=== PATIENT | female | born 1975 | race Caucasian/White ===

== ENCOUNTER → 2022-05-11 | Outpatient (CLI) | payer OTHER, SELFPAY ==
[2022-05-11 08:28] LABS: Absolute Lymphocyte Count 2.29 X10^3/uL (0.83-4.51); Absolute Neutrophil Count 4.9 X10^3/uL (2.0-7.7); Basophil# 0.05 X10^3/uL; Basophil% 0.6 % (0-1); Eosinophil# 0.33 X10^3/uL; Hematocrit 37.2 % (37-47); Lymphocyte # 2.29 X10^3/ul (0.83-4.51); Mean Corp Hgb Conc 32.3 g/dL (32-36); Mean Corpuscular Hgb 30.2 pg (27.0-32.0); Mean Corpuscular Volume 93.7 fL (81-99); Mean Platelet Vol. 10.4 fl (6.2-12.0); Monocyte% 7.3 % (0-10); NRBC Flagged by Analyzer 0 % (0-5); Neutrophil # 4.86 X10^3/uL (2.7-7.7); Neutrophil % 59.6 % (47-70); Platelet Count 440 K/mm3 (150-450); RBC Distribution Width SD 44.7 fl (35.1-43.9); Red Blood Count 3.97 M/mm3 (4.2-5.4); White Blood Count 8.2 K/mm3 (4.4-11.0)
[2022-05-11 08:54] LABS: AST(SGOT) 27 U/L (15-37); Alanine Aminotransfer ALT/SGPT 50 U/L (13-56); Albumin, Serum 4.1 g/dL (3.2-5.0); Alkaline Phosphatase 94 U/L (45-117); Anion Gap 5 (5-15); BUN 13 mg/dL (7-18); BUN/Creat Ratio 19.7 RATIO (10-20); Calcium,Total 9.7 mg/dL (8.5-10.1); Chloride 108 mmol/L (98-107); Creatinine, Serum 0.66 mg/dL (0.55-1.02); EST Glomerular Filtration Rate 102 mL/min (>60); Est Glom Filt Rate - Afr Amer 123 mL/min (>60); Glucose 108 mg/dL (74-106); Potassium 3.6 mmol/L (3.5-5.1); Protein, Total 8.1 g/dL (6.4-8.2); Sodium Level 138 mmol/L (136-145)
== END | disposition home or self-care (01) ==
PROVIDERS: Referring Provider Physician Assistant Medical; Visit Provider Physician Assistant Medical
DX: R19.7 Diarrhea, unspecified (principal); K58.9 Irritable bowel syndrome, unspecified
CPT/HCPCS: 36415; 80053; 82274; 83630; 85025; 87493; 87506

== ENCOUNTER 2022-05-24 07:39 | Day surgery (SDC) | payer OTHER, SELFPAY ==
[2022-05-24] VITALS (8 sets, daily range): BP systolic 107–124; BP diastolic 76–85; PULSE 82–100; RESP 16; TEMP 36.2–36.8; O2SAT 99–100; BMI 26.5
--- NOTE | 2022-05-24 | COLBX_PTH ---
PATIENT: ALTON MONTGOMERY LOC: EN U#:[id number] AGE/SX: 46/F ROOM: RE05/24/[address]: Dr. Dell Vidal MD : 1975 BED: DIS: 05/24/2022 SPEC #: [id number] RECD: 05/24/22 12:20 STATUS: DEVONTE JOSE A #: [id number] ALISIA: 05/24/22 00:[address]: Dell Vidal DEPT: SURGICAL PATHOLOGY RECD BY: Jason Garcia ENTERED: 05/24/22 12:21 SP TYPE: COLON BX OTHR DR: Dr. Suzette Perez MD Tissues: A - Cecum, NOS B - Ascending colon C - Transverse colon D - Descending colon E - Sigmoid colon biopsy F - Rectum, NOS Procedures: Surgery Specimen Level IV HEADER OPERATION: Colonoscopy (MAC), biopsy PRE-OP DIAGNOSIS: Rectal hemorrhage, diarrhea TISSUE SUBMITTED: A - Cecum biopsy, B - Ascending biopsy, C - Transverse biopsy, D - Descending biopsy, E - Sigmoid biopsy, F - Rectal biopsy MICROSCOPIC DIAGNOSIS A. Cecum, biopsy: Fragments of colonic mucosa, no pathologic diagnosis. B. Ascending colon, biopsy: Fragments of colonic mucosa, no pathologic diagnosis. C. Transverse colon, biopsy: A fragment of colonic mucosa, no pathologic diagnosis. D. Descending colon, biopsy: Fragments of colonic mucosa, no pathologic diagnosis. E. Sigmoid colon, biopsy: Fragments of colonic mucosa, no pathologic diagnosis. F. Rectal biopsy: Fragments of colonic mucosa, no pathologic diagnosis. SJ:roni 05/25/2022 MICROSCOPIC DESCRIPTION Slides are reviewed. GROSS DESCRIPTION A - Received in fixative is one container labeled with the patient's name and designated cecum biopsy. The specimen consists of multiple irregular fragments of light spivey soft tissue that in aggregate measure 1.0 x 0.3 x 0.1 cm. The specimen is totally submitted in one cassette. B - Received in fixative is one container labeled with the patient's name and designated ascending biopsy. The specimen consists of multiple irregular fragments of light spivey soft tissue that in aggregate measure 0.6 x 0.6 x 0.1 cm. The specimen is totally submitted in one cassette. C - Received in fixative is one container labeled with the patient's name and designated transverse biopsy. The specimen consists of one irregular fragment of light spivey soft tissue that measures 0.5 x 0.4 x 0.1 cm. The specimen is totally submitted in one cassette. D - Received in fixative is one container labeled with the patient's name and designated descending biopsy. The specimen consists of multiple irregular fragments of light spivey soft tissue that in aggregate measure 0.6 x 0.5 x 0.1 cm. The specimen is totally submitted in one cassette. E - Received in fixative is one container labeled with the patient's name and designated sigmoid biopsy. The specimen consists of two irregular fragments of light spivey soft tissue that in aggregate measure 0.6 x 0.3 x 0.1 cm. The specimen is totally submitted in one cassette. F - Received in fixative is one container labeled with the patient's name and designated rectal biopsy. The specimen consists of multiple irregular fragments of light spivey soft tissue that in aggregate measure 0.6 x 0.4 x 0.1 cm. The specimen is totally submitted in one cassette. / SJ:rg 05/24/2022 TC:4 CPT: 20054 x6
[2022-05-24] MEDS: Lactated Ringers 1,000 ML 15 ML IV (08:02)
[2022-05-24 09:20] LABS: Bedside Glucose 117 mg/dL (74-106)
--- NOTE | 2022-05-24 09:43 | PCM.HP.BLA ---
History and Physical Date of Admission: 05/24/22 Date of Service:? 05/17/22 MR#: [id number] Acct: [id number] Name:ALTON BURDEN Rep #: [id number] : 1975 ? ? Provider: Dr. Dell Vidal MD Age/Sex:? 46/F ? ? Location: [facility] Status: Signed Intake Vital Signs ? 05/17/2308:07 Height 5 ft 7 in Weight: 179 lb 6 oz BMI 28.0 BP 151/70 H Blood Pressure Location Rt brachial Position Sitting Respiration 18 Pulse 87 Pulse Source Monitor Temp 97.2 F L Temp Source Temporal Pulse Oximetry (%) 100 Oxygen Delivery Method room air Intake Visit Reasons:?Rectal bleeding Chief Complaint: Positive occult blood/diarrhea [employer] Required: No Is patient in pain?: No Allergies Penicillins Adverse Reaction (Mild, Verified 05/17/22 09:08) Hives Medications duloxetine 30 mg capsule,delayed release 30 mg PO DAILY 05/11/22 [History Confirmed 05/17/22] gemfibrozil 600 mg tablet (Lopid) 600 mg PO DAILY 05/11/22 [History Confirmed 05/17/22] gabapentin 100 mg capsule 600 mg PO QHS 05/17/22 [History Confirmed 05/17/22] metformin 500 mg tablet 1,000 mg PO DAILY 05/17/22 [History Confirmed 05/17/22] PFSH Medical History?(Updated 05/17/22 @ 19:[address] Dell Vidal MD) Abdominal pain Anxiety Depression Diabetes Diarrhea Nausea Positive occult stool blood test Surgical History? History of hysterectomy Family History?(Updated 05/17/22 @ 09:06 by Odilia Edwards) Father Diabetes Heart disease Hypertension Social History?(Updated 05/17/22 @ 09:07 by Odilia Edwards) Smoking Status:? Current every day smoker Electronic Cigarette Use:? with nicotine alcohol intake:? never substance use type:? does not use HPI HPI HPI: Patient is a 46-year-old female who presents for need to schedule diagnostic colonoscopy secondary to recent changes in stool?no has been primarily diarrhea since March.? They are referred for surgical consultation from urgent care.? Patient has not had prior colonoscopy.? They describe their bowel habits as loose and alternating between straight liquid and very soft.? They state that they have been this way since experiencing a sinus issue at the end of March.? They deny any usage of antibiotics to resolve this issue.? They have approximately 6 bowel movements per day and spend roughly minimal time on the toilet without straining.? In fact, of late patient reports that the frequency is even higher and that yesterday she experienced 9 bowel movements.? She is also distressed because she has had a number of accidents?both in response to coughing as well as awakening her in the middle of the night.? They have not noticed recent bleeding or dark stools, generally, but have noted some occasional bright red blood when wiping.? Because of this, she remarks that she has a suspicion for some small hemorrhoids due to the irritation from her frequent bowel movements.? They do not regularly take fiber supplements.? They do not consume significant fiber in their regular diet. Patient has no family history of colon cancer, inflammatory bowel disease, or diverticulitis.? ? The patient's weight is not stable and patient reports a recent weight loss of approximately 6 pounds. Patient has no prior experience of this type of diarrhea.? She denies any associated abdominal pains.? She has no history of food intolerances. The patient is not prescribed anticoagulants/blood thinners. Relevant prior abdominal surgical history includes: Hysterectomy Patient does have a history of vaping. ROS General General: Yes fatigue; No weight change, appetite, colon cancer, breast cancer or weakness HEENT HEENT: No difficulty swallowing, eye injury, eye surgery, swollen glands or hoarseness Endo Endocrine: Yes diabetes mellitus; No thyroid disease, thyroid cancer, Hair loss, heat intolerance or cold intolerance Skin Skin: No rash or changing moles Breast Breast: No left breast lump, right breast lump, nipple discharge, breast pain, abnormal mammogram, abnormal US or breast enlargement Musc Musculoskeletal: No back problems, arthritis, rheumatoid arthritis, gout or joint pain Cardio Cardiovascular: No murmur, pacemaker, heart disease, atrial fibrillation, high blood pressure, heart attack, heart stent, palpitations, shortness of breat with exertion or chest pain Psych Psychiatric: Yes depression and anxiety; No hearing voices Resp Respiratory: No shortness of breath, No sleep apnea, No cough, No COPD, No asthma, No emphysema and No wheezing Gastro Gastrointestinal: Yes abdominal pain, Yes nausea or vomiting, Yes diarrhea, No constipation, Yes blood in stool, No acid reflux, Yes hemorrhoids, No ulcers, No gallbladder problem and No black,tarry stools Kristian Hematologic: No blood thinners, No blood disorders, No bleeding, No anemia and No blood clots Neuro Neurologic: No system reviewed and no additional complaints, except as documented, No as per HPI, No abnormal gait, No abnormal hearing, No abnormal movements, No abnormal speech, No behavioral changes, No burning sensations, No confusion, No convulsions, No disequilibrium, No dizziness, No localized weakness, No frequent falls, No headache(s), No lack of coordination, No loss of vision, No memory loss, Yes numbness, No other visual disturbances, No radicular pain, No restless legs, No sensory deficit, No syncope, Yes tingling, No tremor(s), No weakness and No other Exam Const General: cooperative and no acute distress Orientation: alert, awake and oriented x3 Resp Auscultation: no rales, no rhonchi and no wheezes Cardio Rate: regular rate Rhythm: regular rhythm GI Other: Nondistended, soft, no visible herniation.? Very mild discomfort in left lower quadrant, otherwise nontender to palpation x4 quadrants Assessment and Plan Assessment and Plan (1) Rectal hemorrhage: ?Plan: Patient with some reports of bright red blood per rectum with wiping and positive Hemoccult study.? This is suggestive for hemorrhoids.? Significantly, patient's recent hemoglobin was normal at 12 g/dL.? Have discussed with patient that we could consider endoscopic banding with pending colonoscopy and she readily accepts. (2) Diarrhea: ?Status:?Chronic ?Comment: Patient with nearly 2 months of diarrhea experiencing increasing frequency of bowel movements.? Work-up initiated per urgent care included enteric pathogen panel and C. difficile?both of which were negative.? Patient has no history of food intolerances and, significantly, denies any associated abdominal pain with these complaints.? I am suspicious for a malabsorptive etiology.? Given her history of vaping, I believe we need to rule out a diagnosis of microscopic colitis.? Recommend proceeding for a diagnostic colonoscopy with random colon biopsies.? Patient is receptive of this recommendation.? In the interim, I have encouraged patient to begin supplementing her fiber with Metamucil and shared with her that it is okay to continue Imodium twice daily as needed for her symptoms. ?Plan: ? Fiber supplementation ? Okay to use Imodium as needed ? Plan for diagnostic colonoscopy on first mutually agreeable date.? Patient okay to complete 1 day prep.? Patient informed that she would require a cab driver for this procedure.? At the time of this procedure, we will plan for random colonic biopsies and will consent patient for possible endoscopic banding if hemorrhoids are identified I have examined the patient and the H&P has been reviewed. There are no clinical changes since date of exam. Patient confirms that she completed her prep successfully and her output is now clear. Proceed to the endoscopy suite for diagnostic colonoscopy as discussed above. We will plan for random colonic biopsies as well as any hemorrhoid banding if indicated.
--- NOTE | 2022-05-24 10:39 | OP.COLON_ITS ---
Patient Name: Ernestine Sood Procedure Date: 05/24/2022 9:35 AM Date of : 1975 Age: 46 Procedure: Colonoscopy Indications: Clinically significant diarrhea of unexplained origin, Anal bleeding Providers: Dell Vidal MD Referring MD: Dell Vidal MD Medicines: See the Anesthesia note for documentation of the administered medications Patient Profile: Last Colonoscopy: none. The patient's first colonoscopy is today. Complications: No immediate complications. Estimated blood loss: Minimal. Procedure: Pre-Anesthesia Assessment: - The heart rate, respiratory rate, oxygen saturations, blood pressure, adequacy of pulmonary ventilation, and response to care were monitored throughout the procedure. After I obtained informed consent, the scope was passed under direct vision. Throughout the procedure, the patient's blood pressure, pulse, and oxygen saturations were monitored continuously. The pediatric colonoscope was introduced through the anus and advanced to the cecum, identified by transillumination. The colonoscopy was somewhat difficult due to significant looping and the patient's medical instability in reaction to sedation medication. Successful completion of the procedure was aided by applying abdominal pressure. The patient tolerated the procedure fairly well. The quality of the bowel preparation was good. Scope In: 9:50:11 AM Scope Withdrawal Time 0 hours 19 minutes 18 seconds Scope Out: 10:29:47 AM Total Procedure Duration Time 0 hours 39 minutes 36 seconds Findings: The perianal and digital rectal examinations were normal. A few small-mouthed diverticula were found in the ascending colon. No biopsies or other specimens were collected for this exam. The exam was otherwise without abnormality on direct and retroflexion views. Internal hemorrhoids were found during retroflexion. The hemorrhoids were Grade I (internal hemorrhoids that do not prolapse). No biopsies or other specimens were collected for this exam. Normal mucosa was found in the rectum, in the sigmoid colon, in the descending colon, in the transverse colon, in the ascending colon and in the cecum. Biopsies for histology were taken with a cold forceps from the cecum, ascending colon, transverse colon, descending colon, sigmoid colon and rectum for evaluation of microscopic colitis. Estimated blood loss was minimal. Impression: - Diverticulosis in the ascending colon. No specimens collected. - The examination was otherwise normal on direct and retroflexion views. - Internal hemorrhoids. No specimens collected. - Normal mucosa in the rectum, in the sigmoid colon, in the descending colon, in the transverse colon, in the ascending colon and in the cecum. Biopsied. Recommendation: - Discharge patient to home (via wheelchair). - Resume previous diet today. - Continue present medications. - Await pathology results. - Repeat colonoscopy date to be determined after pending pathology results are reviewed for surveillance based on pathology results. - Telephone my office for pathology results in 1 week. Procedure Code(s): --- Professional --- 34201, Colonoscopy, flexible; with biopsy, single or multiple Diagnosis Code(s): --- Professional --- K64.0, First degree hemorrhoids R19.7, Diarrhea, unspecified K62.5, Hemorrhage of anus and rectum K57.30, Diverticulosis of large intestine without perforation or abscess without bleeding CPT copyright 2017 [employer]. All rights reserved. The codes documented in this report are preliminary and upon hanger off review may be revised to meet current compliance requirements. Dell Vidal MD 05/24/2022 10:39:12 AM This report has been signed electronically. Number of Addenda: 0 Note Initiated On: 05/24/2022 9:35 AM
--- NOTE | 2022-05-24 10:40 | OP.CCLET_ITS ---
05/24/2022 Suzette Perez Md Re : Colonoscopy procedure for Ernestine Sood Dear Ana This procedure was performed on May. My impressions and recommendations are as follows: Impressions : - Diverticulosis in the ascending colon. No specimens collected. - The examination was otherwise normal on direct and retroflexion views. - Internal hemorrhoids. No specimens collected. - Normal mucosa in the rectum, in the sigmoid colon, in the descending colon, in the transverse colon, in the ascending colon and in the cecum. Biopsied. Recommendations : - Discharge patient to home (via wheelchair). - Resume previous diet today. - Continue present medications. - Await pathology results. - Repeat colonoscopy date to be determined after pending pathology results are reviewed for surveillance based on pathology results. - Telephone my office for pathology results in 1 week. My findings are described in the full procedure note, which is enclosed. If I can be of further assistance, please feel free to contact me at Doctor phone number(s): , Work: . Sincerely, Dell Vidal MD 05/24/2022 10:39:12 AM This report has been signed electronically.
== END 2022-05-24 12:07 | disposition home or self-care (01) ==
LOC: EN 07:40 → AC 07:41
PROVIDERS: PCP Internal Medicine; Referring Provider Surgery; Visit Provider Surgery
PROC: 0DJD8ZZ Inspection of Lower Intestinal Tract, Via Natural or Artificial Opening Endoscopic (ICD-10-PCS; CPT 45378; principal; 2022-05-24 08:55)
DX: K57.30 Diverticulosis of large intestine without perforation or abscess without bleeding (principal); E11.9 Type 2 diabetes mellitus without complications; Z79.4 Long term (current) use of insulin; K62.5 Hemorrhage of anus and rectum; K64.0 First degree hemorrhoids; F17.200 Nicotine dependence, unspecified, uncomplicated; E78.00 Pure hypercholesterolemia, unspecified
CPT/HCPCS: 45380; 82962; 88305; J7120; J2405

== ENCOUNTER 2022-06-29 17:16 | Observation (INO) | payer OTHER, SELFPAY ==
[2022-06-29 17:18] VITALS: BP 113/72; PULSE 96; RESP 18; TEMP 37.3; O2SAT 99; BMI 29.2
--- NOTE | 2022-06-29 17:46 | EX.ED.DYSGE1 ---
HPI <DIGNA Montesinos - Last Filed: 06/29/22 21:32> History of Present Illness Chief Complaint: Lower Extremity Injury Narrative Narrative: Patient presenting with pain to her right hip that radiates to her right groin. This evening, she was standing in her kitchen when her dog ran inside and tripped her, and she fell on her right hip. She denies any loss of consciousness or hitting her head. She is not on any blood thinners. She was not able to stand or get up and had to call EMS for help. She denies any other injury. PFS <DIGNA Montesinos - Last Filed: 06/29/22 21:32> [facility] Medical History (Updated 06/29/22 @ 22:[address] Rachele Holloway MD) Acute eczema Anxiety and depression Chronic diarrhea Diabetes mellitus, type 2 GERD (gastroesophageal reflux disease) High cholesterol Migraine headache Neuropathy Nicotine vapor product user Post-menopausal Restless legs Wears glasses Home Medications gemfibrozil 600 mg tablet (Lopid) 600 mg PO DAILY 05/11/22 [History Last Taken Unknown] duloxetine 30 mg capsule,delayed release 60 mg PO QHS #90 caps 05/30/22 [Rx Last Taken Unknown] gabapentin 300 mg capsule 600 mg PO QHS 05/30/22 [History Last Taken Unknown] blood sugar diagnostic (Accu-Chek Guide test strips) #100 ea 06/13/22 [Rx Last Taken Unknown] blood-glucose meter #1 ea 06/13/22 [Rx Last Taken Unknown] lancets (Accu-Chek Softclix Lancets) #100 ea 06/13/22 [Rx Last Taken Unknown] Allergy/AdvReac Type Severity Reaction Status Date / Time Penicillins AdvReac Mild Hives Verified 06/29/22 17:17 Family History Father Diabetes Heart disease Hypertension Cancer penile, lung Myocardial infarction Peripheral vascular disease Mother Cancer esophageal with mets Osteoporosis Grandmother Parkinsons disease Surgical History History of bunionectomy History of colonoscopy History of hysterectomy Social History (Updated 06/29/22 @ 22:[address] Rachele Holloway MD) current occupational status: employed current occupation: [employer] Smoking Status: Current every day smoker tobacco type: e-cigarettes Electronic Cigarette Use: with nicotine alcohol intake: never substance use type: does not use what type of physical activity do you participate in: none seatbelt use: always do you feel safe at home: Yes ROS <DIGNA Montesinos - Last Filed: 06/29/22 21:32> ROS ED Constitutional Constitutional ED: Denies chills or fever(s) Cardiovascular Cardiovascular: Denies chest pain Respiratory/Chest Respiratory/Chest: Denies cough or dyspnea Gastrointestinal Gastrointestinal: Denies abdominal pain, nausea or vomiting Musculoskeletal Musculoskeletal: Reports arthralgias; Denies back pain or neck pain Integumentary Denies Abrasions Neurologic Neurologic: Denies paresthesias or weakness EXAM <DIGNA Montesinos - Last Filed: 06/29/22 21:32> Physical Exam Const Vital Signs: 06/29/22 17:18 06/29/22 20:30 Temperature 99.2 F H Temperature Source Temporal Pulse Rate 96 103 H Respiratory Rate 18 18 Blood Pressure 113/72 131/83 H Blood Pressure Mean 85 99 Pulse Ox 99 97 Oxygen Delivery Method Room Air Room Air Positive well nourished, well developed and no apparent distress General Appearance ED: well developed HEENT Reports normocephalic and head/scalp atraumatic Mouth ED: Yes moist mucous membranes normal Eyes PERRL and EOMs intact bilaterally Neck full ROM and supple Chest Wall inspection of chest normal Resp normal respiratory effort and clear to auscultation bilaterally Cardio regular rate and regular rhythm GI soft to palpation, non-tender, non-distended and no masses Back/Spine normal ROM and normal to inspection Extremity normal to inspection and full ROM Extremity Narrative: Patient is lying in the examination bed with both of her hips flexed and her knees up. Limited examination of the right hip due to this position and patient being in pain and unable to flex or extend the hip. DP pulses 2+ and equal bilaterally, sensation intact, good capillary refill. Neuro oriented x3, CN's II-XII intact bilaterally, moves all extremities, no focal motor deficits and no sensory deficits noted Sensorium / Orientation: awake and alert Psych mental status grossly normal and thought process normal Skin no rashes or lesions noted and no wounds <Dr. Malka Kramer MD - Last Filed: 06/29/22 23:46> Physical Exam Const Vital Signs: 06/29/22 17:18 06/29/22 20:30 Temperature 99.2 F H Temperature Source Temporal Pulse Rate 96 103 H Respiratory Rate 18 18 Blood Pressure 113/72 131/83 H Blood Pressure Mean 85 99 Pulse Ox 99 97 Oxygen Delivery Method Room Air Room Air [facility] <DIGNA Montesinos - Last Filed: 06/29/22 21:32> [facility] Narrative Medical decision making narrative: Patient presenting today with right hip pain after her dog ran into her this evening and caused her to fall on the ground onto her right side. She denies any other injury. X-ray will be obtained to rule out fracture or dislocation. She does appear to be very uncomfortable and in a lot of pain and is crying. She will be given morphine for pain. X-ray shows a nondisplaced fracture of the right superior and inferior pubic rami. CT scan obtained that shows a the same. Reexamination patient reports a difficult time with range of motion of her right leg. She does not think that she will be able to bear weight or ambulate. I have spoke to Ortho to Kassi who states that this is a nonsurgical fracture and that she can use a walker and bear weight as tolerated but if she is unable to bear weight, she should be admitted to the hospital for pain control. Because patient is in so much pain, I will speak to the hospitalist to discuss admission for pain control. She is comfortable with this plan. Radiography X-Ray: Read by ED Physician and Read by Radiologist Diagnostic Testing: Clinical Impression(s) from Imaging Studies Hip/Pelvis X-Ray 06/29/22 18:55 IMPRESSION: Nondisplaced fractures of the right superior and inferior pubic rami. There is no right hip fracture or dislocation. Electronically Signed: James Mcdonald DO at 19:21 EDT Reading Location ID and State: [facility] / [place] Tel [phone], Service support , Abdomen/Pelvis CT 06/29/22 19:39 IMPRESSION: 1. Fractures of the right superior and inferior pubic rami and right sacral ala without associated soft tissue abnormality. 2. Otherwise grossly normal CT of the abdomen and pelvis. Electronically Signed: James Mcdonald DO at 20:16 EDT Reading Location ID and State: [employer] / [place] Tel [phone], Service support , <Dr. Malka Kramer MD - Last Filed: 06/29/22 23:46> MDM Radiography Diagnostic Testing: Clinical Impression(s) from Imaging Studies Hip/Pelvis X-Ray 06/29/22 18:55 IMPRESSION: Nondisplaced fractures of the right superior and inferior pubic rami. There is no right hip fracture or dislocation. Electronically Signed: James McdonaldDO at 19:21 EDT Reading Location ID and State: [facility] / [employer] Tel [phone], Service support , Abdomen/Pelvis CT 06/29/22 19:39 IMPRESSION: 1. Fractures of the right superior and inferior pubic rami and right sacral ala without associated soft tissue abnormality. 2. Otherwise grossly normal CT of the abdomen and pelvis. Electronically Signed: James De La VegaDO yakelin at 20:16 EDT Reading Location ID and State: [facility] / [employer] Tel [phone], Service support , Treatment and Re-Evaluation :: Patient seen and evaluated with JUDITH. I personally interviewed and examined the patient. I was involved in all aspects of patient's orders, interpretation of results, and treatment. Patient presents with right hip pain after fall. She was knocked onto her right side. She is complaining of pain to her right leg that radiates down toward her knee. She denies striking her head or having neck pain. Patient lying immobilized in the bed but in no acute distress. She is alert and answering questions appropriately. Head and neck examination was no evidence of trauma. Heart is regular rate and rhythm. Lung sounds are clear. Abdomen is soft and nontender. Hips are held in flexion. She has good distal pulses bilaterally. She does have pain with palpation over the right anterior hip. Pelvis and right hip x-ray obtained. This reveals evidence of superior and inferior pubic rami fractures on the right. No evidence of hip fracture per my interpretation. Radiology interpretation is reviewed and agrees. Patient is sent for a CT of the pelvis. There is no evidence of hematoma. Patient has been given analgesics for pain control. We have spoken with orthopedics who agree patient is to be weightbearing as tolerated and follow-up as an outpatient. She is unable to get up and ambulate at this time so we will speak with hospitalist regarding observation and work with physical therapy. Discharge Plan Dx/Rx/DC Orders Clinical Impression: Closed pelvic fracture Disposition Disposition: Acute Care Hospital [facility] Discharge Date/Time: 06/29/22 22:53
[2022-06-29] MEDS: Morphine 4 MG/ML Syringe IV (18:42)
--- NOTE | 2022-06-29 18:55 | RAD_ITS ---
STUDY: X-RAY - PELVIS AND RIGHT HIP REASON FOR EXAM: Female, 46 years old. Fell on right side TECHNIQUE: . Right hip pain. 3 views of the pelvis and hip. COMPARISON: None. FINDINGS: There is a non-specific bowel gas pattern. Normal visualized soft tissue structures. Normal bilateral iliac wings, sacroiliac joints and visualized sacrum. There appears to be fractures of the right superior and inferior pubic rami. There is no displacement. The left pubic rami are unremarkable. Normal pubic symphysis. Normal bilateral ischial tuberosities. Normal visualized right femoral head. Normal right acetabulum. Normal right hip joint. RAD/HIP, UNI W/ Pelvis 2-3 Views IMPRESSION: Nondisplaced fractures of the right superior and inferior pubic rami. There is no right hip fracture or dislocation. Electronically Signed: James Mcdonald DO at 19:21 EDT ,
--- NOTE | 2022-06-29 19:39 | CT_ITS ---
STUDY: CT ABDOMEN AND PELVIS WITHOUT CONTRAST REASON FOR EXAM: Female, 46 years old. Tripped by dog with fall onto right hip. Right pubic rami fractures. RADIATION DOSAGE (If Supplied By Facility): CTDIvol = ( 11.13 ) mGy, DLP = ( 650.96 ) mGycm TECHNIQUE: Transaxial images were obtained from the dome of the diaphragm to the symphysis pubis without oral contrast, and without intravenous contrast. Sagittal and coronal images were reconstructed. Individualized dose optimization techniques were used for this CT. COMPARISON: Right hip, June 29, 2022. FINDINGS: The visualized lung bases are unremarkable. The visualized portions of the heart are within normal limits. Prominent left lateral lobe of the liver which is a normal variant. Liver is otherwise unremarkable. Prominent gallbladder without gallstones or wall thickening. Normal biliary ductal system. Normal spleen. Normal pancreas. Normal bilateral adrenal glands. Normal right kidney. Normal left kidney. Normal visualized ureters. Normal visualized stomach. Normal small intestine. The cecum lies in the right pelvis with the appendix along the right pelvic sidewall adjacent to the rectum. There is no inflammatory change. Normal abdominal aorta. Normal inferior vena cava. Normal retroperitoneum. Normal urinary bladder. Unremarkable vaginal cuff. There is no pelvic lymphadenopathy or mass. No free air or free fluid is seen within the cavity. Normal abdominal wall. Normal lumbar spine. There is mild compression deformity of T12 which is thought to be remote. This should be correlated clinically. There are fractures of the right superior and inferior pubic rami as noted on plain film. There is also a fracture of the right sacral ala extending into the sacroiliac joint. There is no displacement of the fractures. There is no other evidence of fracture or dislocation. There is no evidence of marked soft tissue hematoma. CT/Abdomen/Pelvis without Cont IMPRESSION: 1. Fractures of the right superior and inferior pubic rami and right sacral ala without associated soft tissue abnormality. 2. Otherwise grossly normal CT of the abdomen and pelvis. Electronically Signed: James Mcdonald DO at 20:16 EDT Reading Location ID and State: [address] [place] [address] Tel [phone], Service support ,
[2022-06-29 20:30] VITALS: BP 131/83; PULSE 103; RESP 18; O2SAT 97
[2022-06-29] MEDS: Ondansetron 4 MG/2 ML Vial IV (20:31)
[2022-06-29] MEDS: Ketorolac 15 MG/ML Vial IV ×2 (20:31→23:39)
--- NOTE | 2022-06-29 21:38 | PCM.HP.STD ---
HPI - General General Date of Admission: 06/29/22 Date of Service: 06/29/22 Chief Complaint: Fall, R hip pain. HPI Narrative The patient is a 46 y/o F w/ PMHx: Anxiety and Depression, RLS, Diabetes mellitus type II with neuropathy, HLD, Migraines, Tobacco use who presents to the [facility] ED on 06/29/22 with history of unfortunately standing in her kitchen on evening of presentation when her dog ran into the kitchen tripping her and prompting her to fall onto her right hip with no trauma to the head or loss of consciousness but significant ongoing right hip pain with radiation into her right groin with difficulty even attempting to stand or get up prompting EMS call. Her canine is a larger dog breed of note. She reports that at rest without any movement her pain is 2-3 out of 10 in severity however with any movement she has severe 10 out of 10 pain. Work-up in the ED included T99.2, heart rate initially 96 with most recent repeat 103, BP 131/83, respiratory rate 18, 97% room air, plain film of the hip and pelvis with nondisplaced fractures of the right superior and inferior pubic rami with no demonstrated right hip fracture or dislocation, CT abdomen and pelvis with fractures of the right superior and inferior pubic rami and right sacral porsha without any associated soft tissue abnormality otherwise no acute intra-abdominal findings noted. In the ED patient ministered Zofran 4 mg IV x1, morphine 4 mg IV x1 as well as Toradol 50 mg IV x1. [facility], [facility] Medical History (Updated 06/29/22 @ 22:[address] Rachele Holloway MD) Acute eczema Anxiety and depression Chronic diarrhea Diabetes mellitus, type 2 GERD (gastroesophageal reflux disease) High cholesterol Migraine headache Neuropathy Nicotine vapor product user Post-menopausal Restless legs Wears glasses Home Medications gemfibrozil 600 mg tablet (Lopid) 600 mg PO DAILY 05/11/22 [History Last Taken Unknown] metformin 500 mg tablet 1,000 mg PO QHS 05/17/22 [History Last Taken Unknown] duloxetine 30 mg capsule,delayed release 60 mg PO QHS #90 caps 05/30/22 [Rx Last Taken Unknown] gabapentin 300 mg capsule 600 mg PO QHS 05/30/22 [History Last Taken Unknown] blood sugar diagnostic (Accu-Chek Guide test strips) #100 ea 06/13/22 [Rx Last Taken Unknown] blood-glucose meter #1 ea 06/13/22 [Rx Last Taken Unknown] lancets (Accu-Chek Softclix Lancets) #100 ea 06/13/22 [Rx Last Taken Unknown] Allergy/AdvReac Type Severity Reaction Status Date / Time Penicillins AdvReac Mild Hives Verified 06/29/22 17:17 Family History Father Diabetes Heart disease Hypertension Cancer penile, lung Myocardial infarction Peripheral vascular disease Mother Cancer esophageal with mets Osteoporosis Grandmother Parkinsons disease Surgical History History of bunionectomy History of colonoscopy History of hysterectomy Social History (Updated 06/29/22 @ 22:[address] Rachele Holloway MD) current occupational status: employed current occupation: [employer] Smoking Status: Current every day smoker tobacco type: e-cigarettes Electronic Cigarette Use: with nicotine alcohol intake: never substance use type: does not use what type of physical activity do you participate in: none seatbelt use: always do you feel safe at home: Yes ROS ROS Narrative Admission Review of Systems: CONSTITUTIONAL: No weight loss, fever, chills, + weakness or fatigue. HEENT: Eyes: No visual loss, blurred vision, double vision or yellow sclerae. Ears, Nose, Throat: No hearing loss, sneezing, congestion, runny nose or sore throat. SKIN: No rash or itching, lesions, wounds. CARDIOVASCULAR: No chest pain, chest pressure or chest discomfort, palpitations, edema, orthopnea, syncopal events. RESPIRATORY: No shortness of breath, cough or sputum, wheezing, hemoptysis. GASTROINTESTINAL: No anorexia, nausea, vomiting or diarrhea, abdominal pain, melena, BRBPR. GENITOURINARY: No dysuria, frequency, urgency or retention. NEUROLOGICAL: + RLS. No headache, dizziness, syncope, paralysis, ataxia, numbness or tingling in the extremities, focal weakness, change in bowel or bladder control, seizure. MUSCULOSKELETAL: + muscle, back pain, joint pain or stiffness. HEMATOLOGIC: No anemia, bleeding or bruising. LYMPHATICS: No enlarged nodes. No history of splenectomy. PSYCHIATRIC: + history of depression or anxiety. ENDOCRINOLOGIC: No reports of sweating, cold or heat intolerance. No polyuria or polydipsia. ALLERGIES: No history of asthma, hives, eczema or rhinitis. Vital Signs Vital Signs Vital Signs: 06/29/22 17:18 06/29/22 20:30 Temperature 99.2 F H Temperature Source Temporal Pulse Rate 96 103 H Respiratory Rate 18 18 Blood Pressure 113/72 131/83 H Blood Pressure Mean 85 99 Pulse Ox 99 97 Oxygen Delivery Method Room Air Room Air Weight Weight: 192 lb 10.944 oz Body Mass Index (BMI) 29.2 Physical Exam Narrative Physical Examination: General: Awake, alert, oriented x 3 and cooperative, laying in the ED bed, mildly uncomfortable, notes pain 2-3 out of 10 when she is not moving. Skin: Normal color, normal turgor, no icterus, no cyanosis. HEENT: AT/NC, EOMI, PERRLA, mildly dry MM, no carotid bruits or JVD noted. Lungs: CTA bilaterally, moderate effort, mild decrease BL bases, no rales, ronchi or wheezing. Heart: Mildly tachycardic with regular rhythm; no gallop, rub audible. Abdomen: Soft, overweight, NTTP, ND, mildly hyperactive BS, no HSM. Extremities: No cyanosis, clubbing, or edema. Neurological: Patient awake, alert, oriented as noted, cognitive function intact; pupils equally reactive to light and accommodation, cranial nerves II-XII grossly normal, moving all 4 extremities but very limited given recent fall, right greater than left with right-sided pubic rami fractures, strength accordingly severely globally decreased. Psychiatric: Affect appears uncomfortable, no acute evidence of depressive or anxiety feelings but does have underlying history. Results Radiology Impression Hip/Pelvis X-Ray 06/29/22 18:55 IMPRESSION: Nondisplaced fractures of the right superior and inferior pubic rami. There is no right hip fracture or dislocation. Electronically Signed: James Mcdonald DO at 19:21 EDT Reading Location ID and State: [facility] / [place] Tel [phone], Service support , Abdomen/Pelvis CT 06/29/22 19:39 IMPRESSION: 1. Fractures of the right superior and inferior pubic rami and right sacral ala without associated soft tissue abnormality. 2. Otherwise grossly normal CT of the abdomen and pelvis. Electronically Signed: James Mcdonald DO at 20:16 EDT Reading Location ID and State: [facility] / [place] Tel [phone], Service support , Assessment & Plan Assessment/Plan (1) Pubic ramus fracture: PLAN: Plan The patient is a 46 y/o F w/ PMHx: Anxiety and Depression, RLS, Diabetes mellitus type II with neuropathy, HLD, Migraines, Tobacco use who presents to the [facility] ED on 06/29/22 with history of unfortunately standing in her kitchen on evening of presentation when her dog ran into the kitchen tripping her and prompting her to fall onto her right hip with no trauma to the head or loss of consciousness but significant ongoing right hip pain with radiation into her right groin with difficulty even attempting to stand or get up prompting EMS call. #1. Mechanical fall with acute nondisplaced fractures of the right superior and inferior pubic rami as well as right sacral porsha: We will admit to medical surgical floor, nonoperative, will maintain on fall precautions, weightbearing as tolerated, frequent positional changes encouraged, will have oral and IV pain regimen, will have PT/OT/case management consultation for discharge planning. #2. Diabetes mellitus type II with chronic neuropathy: Hold oral home regimen, ADA diet, accu checks w/ ISS, continue patient on gabapentin regimen. #3. Anxiety and depression: We will continue patient home duloxetine regimen. #4. Hyperlipidemia: We will continue patient home gemfibrozil regimen. #5. Overweight: Weight loss and lifestyle changes encouraged. #6. Restless leg syndrome: Especially given acute presentation if this becomes an issue low threshold to add Mirapex regimen. #7. Chronic migraines: Noted in history, not on any chronic regimen, encourage continued outpatient follow-up. #8. Tobacco Abuse: Encouraged cessation, inpatient consultation per RT, NR if desired. #9. DVT prophylaxis: Lovenox. #10. CODE STATUS: Full code. Admission Evaluation Time spent evaluating chart, patient history, patient evaluation, care planning and discussion with specialists: 60 minutes. Charges/Coding Visit Charges Inpatient E&M: 75808 Init Hosp L2
[2022-06-29 22:27] VITALS: BP 115/76; PULSE 71; RESP 14; TEMP 36.1; O2SAT 97
[2022-06-29 23:04] VITALS: BMI 25.4
[2022-06-29 23:10] VITALS: BP 128/78; PULSE 84; RESP 16; TEMP 37.2; O2SAT 98
[2022-06-29] MEDS: 0.9% Saline Lock 10 ML Syringe IV (23:38)
[2022-06-29] MEDS: 0.9% Normal Saline 1,000 ML 125 ML IV (23:38)
[2022-06-29] MEDS: Gabapentin 600 MG Tablet PO (23:39)
[2022-06-29] MEDS: Gabapentin 100 MG Capsule PO (23:39)
[2022-06-29] MEDS: DULoxetine Hcl 60 MG Capsule PO (23:40)
[2022-06-29] MEDS: Gemfibrozil 600 MG Tablet PO (23:40)
[2022-06-29] MEDS: Pramipexole Di-HCl 0.125 MG Tablet PO (23:40)
[2022-06-29] MEDS: Temazepam 15 MG Capsule PO (23:42)
[2022-06-29 23:50] LABS: Bedside Glucose 144 mg/dL (74-106)
[2022-06-29 23:59] LABS: AST(SGOT) 23 U/L (15-37); Alanine Aminotransfer ALT/SGPT 35 U/L (13-56); Alkaline Phosphatase 108 U/L (45-117); Anion Gap 9 (5-15); BUN 16 mg/dL (7-18); BUN/Creat Ratio 23.5 RATIO (10-20); Calcium,Total 9.7 mg/dL (8.5-10.1); Chloride 106 mmol/L (98-107); Creatinine, Serum 0.68 mg/dL (0.55-1.02); EST Glomerular Filtration Rate 98 mL/min (>60); Est Glom Filt Rate - Afr Amer 118 mL/min (>60); Estimated Creatinine Clearance 103.17 ml/min; Globulin 4.1 g/dL (2.2-4.2); Glucose 147 mg/dL (74-106); Potassium 3.6 mmol/L (3.5-5.1); Protein, Total 8.1 g/dL (6.4-8.2); Sodium Level 137 mmol/L (136-145)
[2022-06-30] VITALS (7 sets, daily range): BP systolic 121–131; BP diastolic 67–78; PULSE 81–92; RESP 16–18; TEMP 36.6–36.9; O2SAT 97–100; BMI 25.4
[2022-06-30 00:12] LABS: Absolute Lymphocyte Count 2.14 X10^3/uL (0.83-4.51); Absolute Neutrophil Count 8.5 X10^3/uL (2.0-7.7); Basophil# 0.05 X10^3/uL; Basophil% 0.4 % (0-1); Eosinophil# 0.11 X10^3/uL; Hematocrit 36.7 % (37-47); Hemoglobin 12.1 g/dL (12.0-15.0); Lymphocyte # 2.14 X10^3/ul (0.83-4.51); Lymphocyte % 18.7 % (19-41); Mean Corpuscular Hgb 29.6 pg (27.0-32.0); Mean Corpuscular Volume 89.7 fL (81-99); Mean Platelet Vol. 10.5 fl (6.2-12.0); Monocyte# 0.65 X10^3/uL; Monocyte% 5.7 % (0-10); NRBC Flagged by Analyzer 0 % (0-5); Neutrophil # 8.46 X10^3/uL (2.7-7.7); Neutrophil % 73.7 % (47-70); Platelet Count 454 K/mm3 (150-450); RBC Distribution Width CV 13.2 % (11.6-14.6); RBC Distribution Width SD 43.6 fl (35.1-43.9); Red Blood Count 4.09 M/mm3 (4.2-5.4); White Blood Count 11.5 K/mm3 (4.4-11.0)
[2022-06-30] MEDS: oxyCODONE 5 MG Tablet PO ×4 (05:23→20:46)
[2022-06-30 05:31] LABS: Absolute Lymphocyte Count 2.35 X10^3/uL (0.83-4.51); Absolute Neutrophil Count 4.9 X10^3/uL (2.0-7.7); Basophil# 0.04 X10^3/uL; Basophil% 0.5 % (0-1); Eosinophil# 0.16 X10^3/uL; Hematocrit 35.8 % (37-47); Hemoglobin 11.6 g/dL (12.0-15.0); Lymphocyte # 2.35 X10^3/ul (0.83-4.51); Lymphocyte % 29.2 % (19-41); Mean Corp Hgb Conc 32.4 g/dL (32-36); Mean Corpuscular Hgb 29.3 pg (27.0-32.0); Mean Corpuscular Volume 90.4 fL (81-99); Mean Platelet Vol. 10.2 fl (6.2-12.0); Monocyte# 0.59 X10^3/uL; Monocyte% 7.3 % (0-10); NRBC Flagged by Analyzer 0 % (0-5); Neutrophil # 4.85 X10^3/uL (2.7-7.7); Neutrophil % 60.4 % (47-70); Platelet Count 387 K/mm3 (150-450); RBC Distribution Width CV 13.2 % (11.6-14.6); RBC Distribution Width SD 43.3 fl (35.1-43.9); Red Blood Count 3.96 M/mm3 (4.2-5.4)
[2022-06-30] MEDS: Ketorolac 15 MG/ML Vial IV ×3 (06:31→22:34)
[2022-06-30] MEDS: 0.9% Normal Saline 1,000 ML 125 ML IV (06:31)
[2022-06-30 06:44] LABS: AST(SGOT) 19 U/L (15-37); Alanine Aminotransfer ALT/SGPT 31 U/L (13-56); Albumin, Serum 3.6 g/dL (3.2-5.0); Alkaline Phosphatase 102 U/L (45-117); Anion Gap 5 (5-15); BUN 17 mg/dL (7-18); BUN/Creat Ratio 30.4 RATIO (10-20); Chloride 110 mmol/L (98-107); Creatinine, Serum 0.56 mg/dL (0.55-1.02); EST Glomerular Filtration Rate 123 mL/min (>60); Est Glom Filt Rate - Afr Amer 149 mL/min (>60); Estimated Creatinine Clearance 125.28 ml/min; Globulin 3.6 g/dL (2.2-4.2); Glucose 125 mg/dL (74-106); Potassium 3.6 mmol/L (3.5-5.1); Protein, Total 7.2 g/dL (6.4-8.2); Sodium Level 139 mmol/L (136-145)
[2022-06-30 07:05] LABS: Bedside Glucose 120 mg/dL (74-106)
--- NOTE | 2022-06-30 07:30 | PCM.PN.HOSP ---
Reason for Visit Reason for Visit: Diagnoses Other specified fracture of unspecified pubis, initial encounter for closed fracture (06/29/22) Subjective Subjective Follow-up for right-sided pubic fracture with trip and fall Objective Data Objective Data Vital Signs: Vital Signs Temp Pulse Resp BP Pulse Ox O2 Del Method 98.0 F 81 16 121/78 H 100 Room Air 06/30/22 05:20 06/30/22 05:20 06/30/22 05:20 06/30/22 05:20 06/30/22 05:20 06/30/22 05:20 Oxygen Delivery Method Room Air Weight: 167 lb 12.348 oz Body Mass Index (BMI) 25.4 Intake & Output: Intake and Output for Last 24 Hours 06/28/22 06/29/22 06/30/22 23:59 23:59 23:59 Intake Total 1360.42 / 1360.42 Output Total 300 / 300 Balance 1060.42 / 1060.42 Lab / Micro Data Result Diagrams: 06/30/22 05:10 06/30/22 05:10 Labs: Laboratory Results - last 24 hr 06/29/22 23:20: POC Glucose 144 H 06/29/22 23:32: WBC 11.5 H, RBC 4.09 L, Hgb 12.1, Hct 36.7 L, MCV 89.7, MCH 29.6, MCHC 33.0, RDW Std Deviation 43.6, RDW Coeff of Radha 13.2, Plt Count 454 H, MPV 10.5, Immature Gran % (Auto) 0.500, Neut % (Auto) 73.7 H, Lymph % (Auto) 18.7 L, [place] % (Auto) 5.7, Eos % (Auto) 1.0, Baso % (Auto) 0.4, Absolute Neuts (auto) 8.5 H, Absolute Lymphs (auto) 2.14, Nucleated RBC % 0 06/29/22 23:32: Sodium 137, Potassium 3.6, Chloride 106, Carbon Dioxide 22.0, Anion Gap 9, BUN 16, Creatinine 0.68, Estim Creat Clear Calc 103.17, Est GFR (MDRD) Af Amer 118, Est GFR (MDRD) Non-Af 98, BUN/Creatinine Ratio 23.5 H, Glucose 147 H, Calcium 9.7, Total Bilirubin 1.00, AST 23, ALT 35, Alkaline Phosphatase 108, Total Protein 8.1, Albumin 4.0, Globulin 4.1, Albumin/Globulin Ratio 1.0 06/30/22 05:10: WBC 8.0, RBC 3.96 L, Hgb 11.6 L, Hct 35.8 L, MCV 90.4, MCH 29.3, MCHC 32.4, RDW Std Deviation 43.3, RDW Coeff of Radha 13.2, Plt Count 387, MPV 10.2, Immature Gran % (Auto) 0.600, Neut % (Auto) 60.4, Lymph % (Auto) 29.2, [place] % (Auto) 7.3, Eos % (Auto) 2.0, Baso % (Auto) 0.5, Absolute Neuts (auto) 4.9, Absolute Lymphs (auto) 2.35, Nucleated RBC % 0 06/30/22 05:10: Sodium 139, Potassium 3.6, Chloride 110 H, Carbon Dioxide 24.0, Anion Gap 5, BUN 17, Creatinine 0.56, Estim Creat Clear Calc 125.28, Est GFR (MDRD) Af Amer 149, Est GFR (MDRD) Non-Af 123, BUN/Creatinine Ratio 30.4 H, Glucose 125 H, Calcium 9.0, Total Bilirubin 1.00, AST 19, ALT 31, Alkaline Phosphatase 102, Total Protein 7.2, Albumin 3.6, Globulin 3.6, Albumin/Globulin Ratio 1.0 06/30/22 06:29: POC Glucose 120 H Radiography Diagnostic Testing: Radiology Impression Hip/Pelvis X-Ray 06/29/22 18:55 IMPRESSION: Nondisplaced fractures of the right superior and inferior pubic rami. There is no right hip fracture or dislocation. Electronically Signed: James Mcdonald DO at 19:21 EDT Reading Location ID and State: [address] [place] [address] Tel [phone], Service support , Abdomen/Pelvis CT 06/29/22 19:39 IMPRESSION: 1. Fractures of the right superior and inferior pubic rami and right sacral ala without associated soft tissue abnormality. 2. Otherwise grossly normal CT of the abdomen and pelvis. Electronically Signed: James Mcdonald DO at 20:16 EDT Reading Location ID and State: [address] [place] [address] Tel [phone], Service support , Physical Exam Narrative Patient complaining of pain 4/10 intensity when she is laying down more when she tries to move. Complain of pain over right groin right ischial/buttock area. No loss of consciousness or head injury. She tripped when her dog ran away and fell on the right side. Physical exam General: Alert, Oriented x3, Cooperative HEENT: Atraumatic, PERRLA, EOMI, Normocephalic Oral: Oral mucosa moist. No Gingival or Mucosal Lesions/ Ulcerations Neck: Supple, No JVD, Negative Carotid Bruits Lungs: Air entry diminished in bilateral lung bases. No crepitation/rhonchi Cardiovascular: Regular rate, Regular Rhythm, Normal S1, Normal S2, No murmurs Abdomen: Bowel Sounds Present, Soft, Non Tender, Non-Distended : No renal angle tenderness. No suprapubic tenderness. Extremities: No edema, Capillary Refill Less than 3 Seconds Skin: No rashes, No breakdown Musculoskeletal: Tenderness present over right pubic and iliac region. ROM over right hip is limited because of pain Neurological: Cranial nerves II-XII grossly intact, DTR 2+/4 and Symmetrical, Neuro grossly intact Psych/Mental Status: Assessment & Plan Assessment/Plan (1) Pubic ramus fracture: PLAN: Plan The patient is a 46 y/o F is being admitted for right hip pain with radiation to right groin after she tripped and fell down. Denies LOC. Patient was admitted for debility as not able to stand up. No other injury. #1. Acute debility due to mechanical fall with acute nondisplaced fractures of the right superior and inferior pubic rami as well as right sacral porsha: Is admitted on MedSurg floor. PT and OT ordered. Pain control. Weightbearing as per tolerated. #2. Diabetes mellitus type II with chronic neuropathy: Medications on hold. ADA diet, accu checks ACHS, regimen of sliding scale. Patient also on gabapentin #3. Anxiety and depression: continue patient home duloxetine regimen. #4. Hyperlipidemia: We will continue patient home gemfibrozil regimen. #5. Overweight: Weight loss and lifestyle changes encouraged. #6. Restless leg syndrome: Especially given acute presentation if this becomes an issue low threshold to add Mirapex regimen. #7. Chronic migraines: Noted in history, not on any chronic regimen, encourage continued outpatient follow-up. #8. Tobacco Abuse: Encouraged cessation, inpatient consultation per RT, NR if desired. #9. DVT prophylaxis: Lovenox. #10. CODE STATUS: Full code. Charges/Coding Visit Charges Inpatient E&M: 67276 Subs Hosp L2
[2022-06-30] MEDS: Enoxaparin 40 MG/0.4 ML Syringe SC (11:46)
[2022-06-30] MEDS: Gabapentin 100 MG Capsule PO ×2 (11:47→20:46)
--- NOTE | 2022-06-30 13:15 | CASEMGMT ---
VERONICA COOK NOTE: Therapy notes reviewed. HHC vs TCU recommended. VERONICA COOK to room. Introduced self and role. Discussed discharge planning: SNF vs HHC vs OP therapy. Pt states prefers to discharge home and interested in HHC. Pt states she lives alone but her dtr plans to stay w/her for a few days and then her son is available to stay w/her after that. She states she has a walker she can borrow from her brother. She has 2 steps to enter into her home and states therapy reviewed w/her how to navigate the stairs. Shower on main floor but states there is no room to place a shower chair. Discussed option of sponge bathing as possibility for safety and pt states would be safer to do this. Pt's preference of HHC agency is [facility] and declines wanting list of other options at this time. Made aware referral can be left on their VM over the w/ but unable to determine if they are able to accept pt until Saturday. Pt voices understanding. VERONICA COOK to f/u with pt on Saturday re: HHC decision re: acceptance. Pt voices understanding. Pt denies having other discharge planning needs or concerns. Deana ARAIZA RN, CM
[2022-06-30 13:50] LABS: Bedside Glucose 95 mg/dL (74-106)
[2022-06-30] MEDS: Morphine 2 MG/ML Syringe IV (13:50)
[2022-06-30] MEDS: 0.9% Saline Lock 10 ML Syringe IV ×2 (13:53→22:34)
[2022-06-30] MEDS: Pramipexole Di-HCl 0.125 MG Tablet PO (20:46)
[2022-06-30] MEDS: Gemfibrozil 600 MG Tablet PO (20:46)
[2022-06-30] MEDS: Gabapentin 600 MG Tablet PO (20:46)
[2022-06-30] MEDS: DULoxetine Hcl 60 MG Capsule PO (20:46)
[2022-06-30] MEDS: Acetaminophen 325 MG Tablet 650 MG PO (20:46)
[2022-06-30 21:11] LABS: Bedside Glucose 118 mg/dL (74-106)
[2022-06-30] MEDS: Temazepam 15 MG Capsule PO (22:34)
[2022-07-01 02:30] VITALS: BP 111/72; PULSE 86; RESP 16; TEMP 36.7; O2SAT 97
[2022-07-01 06:00] VITALS: BMI 26.1
[2022-07-01] MEDS: oxyCODONE 5 MG Tablet PO ×2 (06:12→12:26)
[2022-07-01] MEDS: 0.9% Saline Lock 10 ML Syringe IV (06:12)
[2022-07-01] MEDS: Ketorolac 15 MG/ML Vial IV (06:13)
[2022-07-01 06:40] LABS: Bedside Glucose 120 mg/dL (74-106)
[2022-07-01 06:55] LABS: Bedside Glucose 104 mg/dL (74-106)
[2022-07-01 06:55] LABS: Bedside Glucose 107 mg/dL (74-106)
[2022-07-01 09:08] VITALS: BP 119/73; PULSE 89; RESP 16; TEMP 36.6; O2SAT 99
[2022-07-01] MEDS: Gabapentin 100 MG Capsule PO (09:28)
[2022-07-01] MEDS: Enoxaparin 40 MG/0.4 ML Syringe SC (09:28)
--- NOTE | 2022-07-01 09:30 | DCINST_ITS ---
Discharge Instructions Diet Discharge Diet: No restrictions Activity Discharge Activity: Return to Normal Activity and May Not Drive (FOR 2-3 WEEKS Until sees PCP. Pelvic bone fracture) Weight Bearing Status: Weight bearing as tolerated Dressing / Incision Call your doctor if you observe: Fever of 101 or Higher, Coldness, Increased Pain, Numbness or Tingling, Change in Color, Inability to urinate, Inability to have a bowel movement, Shortness of breath, Dizziness, Fainting spells, Swelling in the ankles, Chest pain, Prolonged hiccupping, Increased palpitations (irregular heartbeat) and Calf discomfort Follow Up Care When: IN 2 WEEKS Test Results: Test results from this visit will be discussed in further detail at your follow- up appointment, if applicable. Discharge Plan Admission Admit Date/Time: 06/29/22 21:40 Primary Reason for Your Visit: Right pubic and sacral bone fracture Attending Provider: Adán Westbrook Primary Care Provider: Suzette Perez Consulting Providers: Rachele Holloway Discharge Orders/Prescriptions Prescriptions: New acetaminophen 325 mg Tablet 650 mg PO Q4H PRN PRN (Reason: Fever, pain 1-10/10) Qty: 0 0RF Rx Instructions: OTC Tylenol 500 mg q 6 hrly prn for pain sennosides-docusate sodium [Stool Softener-Stimulant Laxat] 8.6-50 mg Tablet 2 tab PO BID PRN PRN (Reason: Constipation) Qty: 0 0RF oxycodone 5 mg Tablet 5 mg PO Q4H PRN PRN (Reason: Pain Score 4-10) 3 Days Qty: 10 0RF tizanidine 2 mg tablet 2 mg PO Q8H PRN (Reason: muscle spasticity) Qty: 30 0RF Continued gabapentin 300 mg capsule 600 mg PO QHS duloxetine 30 mg capsule,delayed release(DR/EC) 60 mg PO QHS Qty: 90 0RF gemfibrozil [Lopid] 600 mg tablet 600 mg PO QHS (DME) Accu-Chek Guide test strips Strip See Rx Instructions .Route Qty: 100 0RF Rx Instructions: daily (DME) lancets [Accu-Chek Softclix Lancets] Misc See Rx Instructions .Route Qty: 100 0RF Rx Instructions: daily (DME) blood-glucose meter Kit See Rx Instructions .Route Qty: 1 0RF Rx Instructions: daily Referrals / Follow Up: Suzette Perez MD [Primary Care Provider] - In 1 Week (for pain control/pelvic bone fracture) Luis Syed DO [Med Staff - Active Staff] - Within 2 Weeks (for Right pubic bone and sacral ala fracture) Disposition Disposition (needs filled in before D/C Order can be placed): Home, Self Care
--- NOTE | 2022-07-01 09:36 | PCM.DC.SUM ---
Providers Date of Admission: 06/29/22 Date of Discharge: 07/01/22 Primary Care Physician: Dr. Suzette Perez MD Reason For Visit: FALL, PUBIC RAMI FX Diagnosis Discharge Diagnosis (1) Pubic ramus fracture: Status: Acute Code(s): S32.599A - Other specified fracture of unspecified pubis, initial encounter for closed fracture Plan The patient is a 46 y/o F is being admitted for right hip pain with radiation to right groin after she tripped and fell down. Denies LOC. No head injury. Patient was admitted for debility as not able to stand up. No other injury. #1. Acute debility due to mechanical fall with acute nondisplaced fractures of the right superior and inferior pubic rami as well as right sacral porsha: Is admitted on [facility] floor. PT and OT ordered. Pain control. Weightbearing as per tolerated. 07/01: Patient pain level at pubic bone and groin has much improved. Patient sitting on the chair. Wants to go home. Patient is discharged on oxycodone 2.5 to 5 mg for moderate to severe pain respectively. OARRS report checked. Patient has 0 opioid prescription 0 NARx score. Prescription also given for tizanidine 2 mg 3 times daily as needed total 30 tablets. Advised follow-up PCP in 2 to 3 days to control pain and orthopedic surgeon in 2 weeks. #2. Diabetes mellitus type II with chronic neuropathy: Medications on hold. ADA diet, accu checks ACHS, regimen of sliding scale. Patient also on gabapentin 07/01 glucose level is controlled. #3. Anxiety and depression: continue patient home duloxetine regimen. #4. Hyperlipidemia: continue patient home gemfibrozil regimen. #5. Overweight: Weight loss and lifestyle changes encouraged. #6. Restless leg syndrome: Especially given acute presentation if this becomes an issue low threshold to add Mirapex regimen. #7. Chronic migraines: Noted in history, not on any chronic regimen, encourage continued outpatient follow-up. #8. Tobacco Abuse: Encouraged cessation, inpatient consultation per RT, NR if desired. #9. DVT prophylaxis: Lovenox. #10. CODE STATUS: Full code. Discharge medication reconciliation done. Discharge follow-up instructions completed. Discharge process discussed with the patient and all questions were answered to patient's satisfaction. Total time spent, exact 35 minutes on discharge meds reconciliation, examination, coordination of care with nurses and ancillary staff, review of imaging and blood test and discussion with the patient on follow-up instructions. Medications at Discharge Home Medications gemfibrozil 600 mg tablet (Lopid) 600 mg PO QHS cholesterol 05/11/22 duloxetine 30 mg capsule,delayed release 60 mg PO QHS #90 caps 05/30/22 gabapentin 300 mg capsule 600 mg PO QHS neuropathy 05/30/22 blood sugar diagnostic (Accu-Chek Guide test strips) #100 ea 06/13/22 blood-glucose meter #1 ea 06/13/22 lancets (Accu-Chek Softclix Lancets) #100 ea 06/13/22 acetaminophen 325 mg tablet 650 mg PO Q4H PRN PRN Fever, pain 1-10/10 #0 tabs 07/01/22 oxycodone 5 mg tablet 5 mg PO Q4H PRN PRN Pain Score 4-10 3 days #10 tabs 07/01/22 sennosides 8.6 mg-docusate sodium 50 mg tablet (Stool Softener-Stimulant Laxative) 2 tab PO BID PRN PRN Constipation #0 tabs 07/01/22 tizanidine 2 mg tablet 2 mg PO Q8H PRN muscle spasticity #30 tabs 07/01/22 Physical Exam Narrative Patient complaining of pain 2-3/10 intensity. Currently sitting in the chair. Physical exam General: Alert, Oriented x3, Cooperative HEENT: Atraumatic, PERRLA, EOMI, Normocephalic Oral: Oral mucosa moist. No Gingival or Mucosal Lesions/ Ulcerations Neck: Supple, No JVD, Negative Carotid Bruits Lungs: Air entry diminished in bilateral lung bases. No crepitation/rhonchi Cardiovascular: Regular rate, Regular Rhythm, Normal S1, Normal S2, No murmurs Abdomen: Bowel Sounds Present, Soft, Non Tender, Non-Distended : No renal angle tenderness. No suprapubic tenderness. Extremities: No edema, Capillary Refill Less than 3 Seconds Skin: No rashes, No breakdown Musculoskeletal: Tenderness present over right pubic and iliac region. ROM over right hip is limited because of pain Neurological: Cranial nerves II-XII grossly intact, DTR 2+/4 and Symmetrical, Neuro grossly intact Psych/Mental Status: Flat affect Weight / BMI Weight Weight: 172 lb 2.896 oz Body Mass Index (BMI) 26.1 ABG / Lab / Microbiology Data Result Diagrams: 06/30/22 05:10 06/30/22 05:10 Laboratory: Laboratory Results - last 24 hr 06/30/22 13:22: POC Glucose 95 06/30/22 17:35: POC Glucose 104 06/30/22 17:37: POC Glucose 107 H 06/30/22 20:49: POC Glucose 118 H 07/01/22 06:17: POC Glucose 120 H D/C Instructions Discharge Diet: No restrictions Weight Bearing Status: Weight bearing as tolerated Call your doctor if you observe: Fever of 101 or Higher, Coldness, Increased Pain, Numbness or Tingling, Change in Color, Inability to urinate, Inability to have a bowel movement, Shortness of breath, Dizziness, Fainting spells, Swelling in the ankles, Chest pain, Prolonged hiccupping, Increased palpitations (irregular heartbeat) and Calf discomfort When: IN 2 WEEKS Meaningful Use Info Meaningful Use Diagnoses (Choose all that apply): None applicable Discharge Plan Admission Admit Date/Time: 06/29/22 21:40 Primary Reason for Your Visit: Right pubic and sacral bone fracture Attending Provider: Adán Westbrook Primary Care Provider: Suzette Perez Consulting Providers: Rachele Holloway Discharge Orders/Prescriptions Prescriptions: New acetaminophen 325 mg Tablet 650 mg PO Q4H PRN PRN (Reason: Fever, pain 1-10/10) Qty: 0 0RF Rx Instructions: OTC Tylenol 500 mg q 6 hrly prn for pain sennosides-docusate sodium [Stool Softener-Stimulant Laxat] 8.6-50 mg Tablet 2 tab PO BID PRN PRN (Reason: Constipation) Qty: 0 0RF oxycodone 5 mg Tablet 5 mg PO Q4H PRN PRN (Reason: Pain Score 4-10) 3 Days Qty: 10 0RF tizanidine 2 mg tablet 2 mg PO Q8H PRN (Reason: muscle spasticity) Qty: 30 0RF Continued gabapentin 300 mg capsule 600 mg PO QHS duloxetine 30 mg capsule,delayed release(DR/EC) 60 mg PO QHS Qty: 90 0RF gemfibrozil [Lopid] 600 mg tablet 600 mg PO QHS (DME) Accu-Chek Guide test strips Strip See Rx Instructions .Route Qty: 100 0RF Rx Instructions: daily (DME) lancets [Accu-Chek Softclix Lancets] Misc See Rx Instructions .Route Qty: 100 0RF Rx Instructions: daily (DME) blood-glucose meter Kit See Rx Instructions .Route Qty: 1 0RF Rx Instructions: daily Referrals / Follow Up: Suzette Perez MD [Primary Care Provider] - In 1 Week (for pain control/pelvic bone fracture) Luis Syed DO [Med Staff - Active Staff] - Within 2 Weeks (for Right pubic bone and sacral ala fracture) Disposition Disposition (needs filled in before D/C Order can be placed): Home, Self Care Charges/Coding Visit Charges Inpatient E&M: 57726 Disch Hosp >30min
--- NOTE | 2022-07-02 09:45 | CASEMGMT ---
VERONICA COOK NOTE: Call received from Kacy @ [facility]. They are able to accept pt w/ELIANA slated for tomorrow. She states they will contact amber. Deana ARAIZA RN, CM
== END 2022-07-01 12:50 | disposition home health service (06) ==
LOC: ED 21:32 → MS3 22:11
PROVIDERS: Admitting Provider Family Medicine; Emergency Provider Emergency Medicine; PCP Internal Medicine; Visit Provider Internal Medicine
DX: S32.511A Fracture of superior rim of right pubis, initial encounter for closed fracture (principal); S32.82XA Multiple fractures of pelvis without disruption of pelvic ring, initial encounter for closed fracture; E11.40 Type 2 diabetes mellitus with diabetic neuropathy, unspecified; F41.9 Anxiety disorder, unspecified; E78.00 Pure hypercholesterolemia, unspecified; F17.290 Nicotine dependence, other tobacco product, uncomplicated; R53.81 Other malaise; W01.0XXA Fall on same level from slipping, tripping and stumbling without subsequent striking against object, initial encounter; K21.9 Gastro-esophageal reflux disease without esophagitis; F32.A Depression, unspecified; Z79.899 Other long term (current) drug therapy; Y92.89 Other specified places as the place of occurrence of the external cause; G25.81 Restless legs syndrome
CPT/HCPCS: 36415; 73502; 74176; 80053; 82962; 85025; 94668; 96361; 96372; 96374; 96375; 96376; 97116; 97162; 97166; 97530; 97535; 99221; 99285; J7030; A4216; G0378; J2405

== ENCOUNTER → 2023-03-12 | Outpatient (CLI) | payer OTHER, SELFPAY ==
--- OUTSIDE RECORDS SUMMARY | 2023-03-12 07:10 | XMS RPT_ITS | CCD ---
Author Name Unknown Address [address] [place] [address] Organization [facility] Care Team Providers Care Biological Sciences Instructor Name Role Phone MALINI DAVIS MD, V Admitting Unavailable MALINI DAVIS MD, V Attending Unavailable NONE, NONE Primary Care Unavailable MALINI DAVIS MD, V Consulting Unavailable NONE, NONE Consulting Unavailable SUSAN RAE, MALINI Escobedo Admitting Unavailable MALINI DAVIS MD, V Attending Unavailable NONE, NONE Primary Care Unavailable MALINI DAVIS MD, V Consulting Unavailable NONE, NONE Consulting Unavailable CECI SUN Admitting Unavailable CECI SUN Attending Unavailable CORINNE, CECI A Primary Care Unavailable ELVIN VIVEROS MD Consulting Unavailable RICE CECI A Consulting Unavailable Allergies Allergy Classification Reported Allergen(s) Allergy Type Date of Onset Reaction(s) Facility (1 source) Penicillins Drug allergy (disorder) [facility] Repository Problems Active Problems Problem Classification Problem Date Documented Da te Episodic/Chronic Unclassified (1 source) CONTACT W/AND (SUSP) EXPOS COVID-19; Translations: [CONTACT W/AND (SUSP) EXPOS COVID-19] Onset: 09-25-2021 Past or Other Problems Problem Classification Problem Date Documented Da te Episodic/Chronic Nonmalignant breast conditions (1 source) Disorder of breast, unspecified; Translations: [DISORDER OF BREAST UNSPECIFIED] Onset: 12-25-2021 Episodic Other screening for suspected conditions (not mental disorders or infectious disease) (3 sources) Encounter for screening mammogram for malignant neoplasm of breast; Translations: [ENC SCR MAMMO MALIG NEOPLASM BREAST] Onset: 12-20-2021 Episodic Other upper respiratory infections (3 sources) Acute upper respiratory infection, unspecified; Translations: [ACUTE UP RESPIRATORY INFECTION UNS] Onset: 09-20-2021 Episodic Residual codes; unclassified (1 source) Family history of malignant neoplasm of breast; Translations: [FAMILY HX MALIG NEOPLASM OF BREAST] Onset: 12-25-2021 Episodic Results Test Name Value Interpretation Reference Range Facil ity Encounters Encounter Date Encounter Type Care Provider Facility Start: 12-20-2021 End: 12-21-2021 ambulatory CECI SUN Facility:[facility] Start: 09-20-2021 End: 09-21-2021 ambulatory MALINI DAVIS MD Facility:[facility] Start: 08-22-2021 End: 08-23-2021 ambulatory MAILNI DAVIS MD Facility:[facility] Payers Date Payer Category Payer Unknown [id number] 2011 Self-pay 1974 Unknown [id number] Summary Purpose Family History No Family History Records Found Advance Directives No Advanced Directives Records Found Additional Source Comments INFORMATION SOURCE (unrecogn ized section and content) FOR RECORDS PERTAINING TO PATIENTS WHO ARE OR HAVE BEEN ENROLLED IN A CHEMICAL DEPENDENCY/SUBSTANCEABUSE PROGRAM, SOME INFORMATION MAY BE OMITTED. This clinical summary was aggregated from multiple sources. Caution should be exercised in using it in the provision of clinical care. This summary normalizes information from multiple sources, and as a consequence, information in this document may materially change the coding, format and clinical context of patient data. In addition, data may be omitted in some cases. CLINICAL DECISIONS SHOULD BE BASED ON THE PRIMARY CLINICAL RECORDS. [employer] [facility]. provides no warranty or guarantee of the accuracy or completeness of information in this document.
[2023-03-12 08:12] LABS: Cholesterol 252 mg/dL (200); High Density Lipoprotein 50 mg/dL; Triglycerides 164 mg/dL; Very Low Density Lipoprotein 33 mg/dL (5-40)
[2023-03-12 08:21] LABS: Vitamin D,25 Hydroxy 25.4 ng/mL
[2023-03-12 10:41] LABS: Microalbumin,Random Urine 41.6 mg/L (NO RANGE EST.); Microalbumin:Creatinine Ratio 35.6 mg/g CRE (<30 mg/g CRE)
== END | disposition home or self-care (01) ==
LOC: LAB 07:06
PROVIDERS: PCP Internal Medicine; Referring Provider Internal Medicine; Visit Provider Internal Medicine
DX: E11.9 Type 2 diabetes mellitus without complications (principal); R19.7 Diarrhea, unspecified
CPT/HCPCS: 80061; 82043; 82306; 82570

== ENCOUNTER → 2023-04-02 | Outpatient (CLI) | payer OTHER, SELFPAY ==
--- NOTE | 2023-04-02 16:05 | BI_ITS ---
MAMMOGRAPHY - BILATERAL SCREENING REASON FOR EXAM: Female, 47 years old. Routine annual screening examination. PERTINENT HISTORY: Aunt with breast cancer. TECHNIQUE: Digital bilateral breast reji (3D mammographic acquisition) in the CC and MLO projections. 2-D mediolateral oblique (MLO) and craniocaudad (CC) views of both breasts were obtained. CAD: Full Field Digital Mammography with Computer Added Detection was performed. COMPARISON: Comparison is made with prior EXAMINATION dated December 20, 2021. FINDINGS: Breast Composition: There are scattered areas of fibroglandular density. Stable multiple well-defined nodular densities in the retroareolar region of the right breast. These may represent dilated ducts. Correlation with ultrasound is recommended. No other significant abnormalities are identified. BI/SCRN MAMM (CAD)W/REJI BILAT IMPRESSION: Nodular density seen in the retroareolar region of the right breast. Correlation with ultrasound is recommended for further evaluation. ASSESSMENT CATEGORY: BIRADS Category 0: Incomplete. Need additional imaging evaluation. A letter regarding these results will be sent to the patient by the facility within 30 days. Approximately 10% of breast cancers are not detected by mammography. A normal mammogram should not delay biopsy of a clinically suspicious abnormality. [id number] Electronically Signed: Paolo Silva MD at 15:22 EST ,
--- OUTSIDE RECORDS SUMMARY | 2023-04-02 20:33 | XMS RPT_ITS | CCD ---
Author Name Unknown Address [address] [place] [address] Organization [facility] Care Team Providers Care Doper Operator Name Role Phone MALINI DAVIS MD, V [...] Facility (1 source) Penicillins Drug allergy (disorder) [facility] Repository Problems Active Problems Problem Classification [...] Start: 12-20-2021 End: 12-21-2021 ambulatory CECI SUN Facility:[facility] Start: 09-20-2021 End: 09-21-2021 ambulatory MALINI DAVIS MD Facility:[facility] Start: 08-22-2021 End: 08-23-2021 ambulatory MALINI DAVIS MD Facility:[facility] Payers Date Payer Category Payer Unknown [id number] 2011 Self-pay 1975 Unknown [id number] Summary Purpose Family History No Family History [...] BE BASED ON THE PRIMARY CLINICAL RECORDS. [employer] [facility]. provides no warranty or guarantee of the accuracy or completeness of information in this document.
== END | disposition home or self-care (01) ==
PROVIDERS: PCP Internal Medicine; Referring Provider Internal Medicine; Visit Provider Internal Medicine
DX: Z12.31 Encounter for screening mammogram for malignant neoplasm of breast (principal); F41.9 Anxiety disorder, unspecified
CPT/HCPCS: 77063; 77067

== ENCOUNTER → 2023-04-09 | Outpatient (CLI) | payer OTHER, SELFPAY ==
--- NOTE | 2023-04-09 14:39 | US_ITS ---
STUDY: ULTRASOUND BREAST - RIGHT REASON FOR EXAM: Female, 47 years old. Abnormal screening mammogram. TECHNIQUE: Axial and longitudinal images of the RIGHT breast were performed with a high resolution ultrasound transducer. # OF IMAGES: 31 COMPARISON: Comparison is made with prior mammogram dated April 02, 2023. FINDINGS: RIGHT Breast: The retroareolar region of the right breast was examined with ultrasound. There is evidence of a 5.2 cm x 5.6 cm x 1.9 cm well-circumscribed complex solid and cystic mass at the 8:00 position of the breast at 3 cm from the nipple. . Biopsy is recommended. US/Breast Limited Unilateral IMPRESSION: 5.2 cm x 5.65 x 1.9 cm well-circumscribed complex solid and cystic mass at the 8:00 position of the breast at 3 cm from the nipple. Biopsy is recommended. ASSESSMENT CATEGORY: BIRADS Category 4: Suspicious - Biopsy Should Be Considered. A letter regarding these results will be sent to the patient by the facility within 30 days. Electronically Signed: Paolo Silva MD at 8:44 EST ,
== END | disposition home or self-care (01) ==
LOC: OPUS 14:39
PROVIDERS: PCP Internal Medicine; Referring Provider Internal Medicine; Visit Provider Internal Medicine
DX: R92.8 Other abnormal and inconclusive findings on diagnostic imaging of breast (principal)
CPT/HCPCS: 76642

== ENCOUNTER → 2023-04-11 | Outpatient (CLI) | payer OTHER, SELFPAY ==
--- NOTE | 2023-04-10 08:15 | BRBX_PTH ---
PATHOLOGY RESULTS PATIENT: ALTON MONTGOMERY [facility] U#:[id number] AGE/SX: 47/F ROOM: RE04/11/[address]: Dr. Monika Ramirez MD : 1975 BED: DIS: 04/11/2023 SPEC #: [id number] RECD: 04/11/23 10:39 STATUS: DEVONTE JOSE A #: [id number] ALISIA: 04/10/23 08:[address]: Monika Ramirez DEPT: SURGICAL PATHOLOGY RECD BY: Estephanie Carson ENTERED: 04/11/23 10:39 SP TYPE: BREAST BX OTHR DR: Dr. Suzette Perez MD Tissues: Right breast, NOS Procedures: Surgery Specimen Level IV HEADER OPERATION: Biopsy of right breast mass PRE-OP DIAGNOSIS: Stable cystic solid from 2021 TISSUE SUBMITTED: Right breast 8 o'clock, 3.0 cm from nipple MICROSCOPIC DIAGNOSIS Right breast, 8 o'clock, 3.0 cm from nipple, core biopsy: Fragments of fatty benign breast tissue with focal fibrosis. Negative for atypia or malignancy. See comment. PAUL:roni 04/12/2023 COMMENT Correlation with clinical, radiologic findings and appropriate follow up are necessary. MICROSCOPIC DESCRIPTION Slides are reviewed. GROSS DESCRIPTION Received in fixative is one container labeled with the patient's name and designated right breast mass. The specimen consists of multiple irregular fragments of spivey soft tissue that in aggregate measure 1.0 x 0.2 x 0.1 cm. The specimen is totally submitted in one cassette. / AM:roni 04/11/2023 TC:5 Ischemic Time: 1 minute Fixation Time: 12.5 hours CPT: 49709
== END | disposition home or self-care (01) ==
PROVIDERS: PCP Internal Medicine; Referring Provider Surgery; Visit Provider Surgery
DX: N60.31 Fibrosclerosis of right breast (principal)
CPT/HCPCS: 88305

== ENCOUNTER → 2023-05-13 | Outpatient (CLI) | payer OTHER, SELFPAY ==
--- NOTE | 2023-05-13 11:09 | MRI_ITS ---
STUDY: BILATERAL BREAST MR WITHOUT AND WITH CONTRAST REASON FOR EXAM: Female, 47 years old. Abnormal imaging. Follow-up. TECHNIQUE: Multi-sequence multi-echo imaging of both breasts was performed with a dedicated breast coil. T1-weighted and T2-weighted images were performed before the administration of contrast. T1-weighted images were also performed after the intravenous administration of 15 mL of Clariscan contrast. COMPARISON: Bilateral mammograms dated October 2015, September 2019, December 2021 and 04/02/2023. Unilateral right breast ultrasound dated 04/09/2023 FINDINGS: RIGHT BREAST: Scattered fibroglandular densities with minimal background enhancement. Serpiginous structures in the retroareolar space which were also seen on the mammograms from 09/28/2021 04/02/2023. These serpiginous low-density masses may represent a vascular malformation or hemangioma. No focal suspicious enhancing mass or masses is identified. LEFT BREAST: Scattered fibroglandular densities with minimal background enhancement. No abnormal enhancing masses or areas of non-mass enhancement in the left breast. No enlarged or abnormal lymph nodes. No abnormality in the visualized regions of the chest or liver. MRI/Breast Bilateral W/O and W IMPRESSION: Stable serpiginous densities in the retroareolar region of the right breast which show no suspicious enhancement on breast MRI with contrast. The lesion may represent vascular malformation or hemangioma, which has been stable mammographically since September 2019. No suspicious enhancing mass is identified. CATEGORY: BIRADS Category 2: Benign. A letter regarding these results will be sent to the patient by the facility within 30 days. Electronically Signed: Jonah Whyte MD at 12:59 EDT ,
[2023-05-13 11:39] LABS: CREATININE FINGERSTICK < 1.0 mg/dL (0.55-1.02); EGFR FINGERSTICK > 60.0000 mL/min (>60)
== END | disposition home or self-care (01) ==
LOC: MRI 11:04
PROVIDERS: PCP Internal Medicine; Referring Provider Surgery; Visit Provider Surgery
DX: R92.8 Other abnormal and inconclusive findings on diagnostic imaging of breast (principal); N63.10 Unspecified lump in the right breast, unspecified quadrant
CPT/HCPCS: 77049; A9575; A4216; C8908

== ENCOUNTER → 2023-07-05 | Outpatient (CLI) | payer OTHER, SELFPAY ==
--- NOTE | 2023-07-05 06:27 | RAD_ITS ---
STUDY: X-RAY - PELVIS AND RIGHT HIP REASON FOR EXAM: Female, 47 years old. Pain, history of pelvic fracture last year. TECHNIQUE: 3 views of the pelvis and right hip. COMPARISON: None. FINDINGS: There is a non-specific bowel gas pattern. Normal visualized soft tissue structures. Normal bilateral iliac wings, sacroiliac joints and visualized sacrum. There are old healed fractures of the right superior and inferior pubic rami. Normal left superior and inferior pubic rami. Normal pubic symphysis. Normal bilateral ischial tuberosities. Normal visualized femoral head. Normal acetabulum. Normal hip joint. There is no demonstrated acute fracture. RAD/HIP, UNI W/ Pelvis 2-3 Views IMPRESSION: Old healed fractures of the right superior and inferior pubic rami. Electronically Signed: Ajay Joseph MD at 10:24 EDT ,
--- NOTE | 2023-07-05 06:35 | RAD_ITS ---
STUDY: X-RAY - SACRUM/COCCYX REASON FOR EXAM: Female, 47 years old. Pain, history of fracture last year. TECHNIQUE: 3 views of the sacrum and coccyx were obtained. COMPARISON: None. FINDINGS: Normal bilateral sacroiliac joints. Normal visualized sacral ala and fused sacral bodies. Normal sacrococcygeal junction with a normal angulation. Normal coccygeal segments. The presacral soft tissue structures are unremarkable. There are old healed fractures of the right superior and inferior pubic rami. There is no demonstrated acute fracture or destructive osseous process. RAD/Sacrum-Coccyx min 2 Views IMPRESSION: Old healed fractures of the right superior and inferior pubic rami. Electronically Signed: Ajay Joseph MD at 10:22 EDT ,
== END | disposition home or self-care (01) ==
LOC: RAD 06:25
PROVIDERS: PCP Internal Medicine; Visit Provider Internal Medicine
DX: R10.2 Pelvic and perineal pain (principal); M53.3 Sacrococcygeal disorders, not elsewhere classified
CPT/HCPCS: 72220; 73502

== ENCOUNTER → 2023-08-27 | Outpatient (CLI) | payer OTHER, SELFPAY | END | disposition home or self-care (01) | LOC: RAD 06:04 | PROVIDERS: PCP Internal Medicine; Referring Provider Chiropractor; Visit Provider Chiropractor | DX: M54.9 Dorsalgia, unspecified (principal) | CPT/HCPCS: 72110 ==

== ENCOUNTER → 2023-11-26 | Outpatient (CLI) | payer OTHER, SELFPAY ==
[2023-11-26 06:21] LABS: Absolute Lymphocyte Count 2.33 X10^3/uL (0.83-4.51); Basophil# 0.09 X10^3/uL; Eosinophil# 0.43 X10^3/uL; Hematocrit 39.3 % (37-47); Hemoglobin 12.8 g/dL (12.0-15.0); Lymphocyte # 2.33 X10^3/ul (0.83-4.51); Lymphocyte % 27.1 % (19-41); Mean Corp Hgb Conc 32.6 g/dL (32-36); Mean Corpuscular Hgb 30.5 pg (27.0-32.0); Mean Corpuscular Volume 93.8 fL (81-99); Mean Platelet Vol. 10.5 fl (6.2-12.0); Monocyte# 0.67 X10^3/uL; Monocyte% 7.8 % (0-10); NRBC Flagged by Analyzer 0 % (0-5); Neutrophil # 5.04 X10^3/uL (2.7-7.7); Neutrophil % 58.8 % (47-70); Platelet Count 353 K/mm3 (150-450); RBC Distribution Width CV 13.5 % (11.6-14.6); RBC Distribution Width SD 46.6 fl (35.1-43.9); Red Blood Count 4.19 M/mm3 (4.2-5.4); White Blood Count 8.6 K/mm3 (4.4-11.0)
[2023-11-26 06:52] LABS: AST(SGOT) 19 U/L (15-37); Alanine Aminotransfer ALT/SGPT 27 U/L (13-56); Albumin, Serum 3.9 g/dL (3.2-5.0); Alkaline Phosphatase 99 U/L (45-117); Anion Gap 4 (5-15); BUN 12 mg/dL (7-18); BUN/Creat Ratio 17.1 RATIO (10-20); Calcium,Total 9.3 mg/dL (8.5-10.1); Chloride 107 mmol/L (98-107); Cholesterol 164 mg/dL (200); EST Glomerular Filtration Rate 94 mL/min (>60); Est Glom Filt Rate - Afr Amer 114 mL/min (>60); Globulin 3.9 g/dL (2.2-4.2); Glucose 141 mg/dL (74-106); High Density Lipoprotein 49 mg/dL; Protein, Total 7.8 g/dL (6.4-8.2); Sodium Level 139 mmol/L (136-145); Triglycerides 107 mg/dL; Very Low Density Lipoprotein 21 mg/dL (5-40)
[2023-11-26 08:45] LABS: Hemoglobin A1c 6.4 % (3.8-5.6)
== END | disposition home or self-care (01) ==
LOC: LAB 06:09
PROVIDERS: PCP Internal Medicine; Referring Provider Internal Medicine; Visit Provider Internal Medicine
DX: E11.9 Type 2 diabetes mellitus without complications (principal); S32.591D Other specified fracture of right pubis, subsequent encounter for fracture with routine healing
CPT/HCPCS: 36415; 80053; 80061; 82306; 83036; 85025

== ENCOUNTER → 2024-11-17 | Outpatient (CLI) | payer OTHER, SELFPAY ==
[2024-11-17 07:01] LABS: Hematocrit 39.5 % (37-47); Hemoglobin 12.7 g/dL (12.0-15.0); Immature Granulocytes Count 0.070 X10^3/uL (0.0-0.0); Mean Corp Hgb Conc 32.2 g/dL (32-36); Mean Corpuscular Volume 93.4 fL (81-99); Mean Platelet Vol. 10.9 fl (6.2-12.0); NRBC Flagged by Analyzer 0 % (0-5); Platelet Count 315 K/mm3 (150-450); RBC Distribution Width CV 13.5 % (11.6-14.6); RBC Distribution Width SD 46.3 fl (35.1-43.9); Red Blood Count 4.23 M/mm3 (4.2-5.4); White Blood Count 10.2 K/mm3 (4.4-11.0)
[2024-11-17 09:01] LABS: AST(SGOT) 22 U/L (<=31); Alanine Aminotransfer ALT/SGPT 27 U/L (<=34); Albumin, Serum 4.5 g/dL (3.5-5.0); Alkaline Phosphatase 88 U/L (35-104); Anion Gap 13 (5-15); BUN 13 mg/dL (4-19); BUN/Creat Ratio 19.7 RATIO (10-20); Calcium,Total 9.4 mg/dL (7.6-11.0); Carbon Dioxide 23.2 mmol/L (21.0-32.0); Chloride 102 mmol/L (98-108); Cholesterol 171 mg/dL (<=200); Globulin 3.1 g/dL (2.2-4.2); Glucose 133 mg/dL (70-99); Low Density Lipoprotein Calc. 100 mg/dL; Potassium 3.9 mmol/L (3.3-5.1); Triglycerides 159 mg/dL; Very Low Density Lipoprotein 32 mg/dL (5-40); cholesterol:hdl ratio screen 4.32
[2024-11-17 09:26] LABS: Vitamin D,25 Hydroxy 25.9 ng/mL (30-100)
[2024-11-17 16:57] LABS: Creatinine, Urine (random) 63.80 mg/dL (28.00-217.00); Microalbumin,Random Urine < 12.0 mg/L (<20 mg/L)
== END | disposition home or self-care (01) ==
LOC: LAB 06:26
PROVIDERS: PCP Internal Medicine; Referring Provider Internal Medicine; Visit Provider Internal Medicine
DX: E11.9 Type 2 diabetes mellitus without complications (principal); M81.0 Age-related osteoporosis without current pathological fracture
CPT/HCPCS: 36415; 80053; 80061; 82043; 82306; 82570; 83036; 85025

== ENCOUNTER → 2025-01-11 | Outpatient (CLI) | payer OTHER, SELFPAY | END | disposition home or self-care (01) | LOC: LABSPEC 08:11 | PROVIDERS: PCP Internal Medicine; Visit Provider Physician Assistant | DX: R30.9 Painful micturition, unspecified (principal) | CPT/HCPCS: 87077; 87086; 87088; 87186 ==